=== PATIENT | female | born 1990 | race Caucasian/White ===

== ENCOUNTER 2018-06-06 20:15 | Emergency (ER) | payer SELFPAY ==
--- NOTE | 2018-06-06 21:14 | RAD ---
THREE VIEWS OF THE LEFT WRIST 06/06/18 INDICATION: Left wrist injury. COMPARISON: None. FINDINGS: No acute fracture or subluxation is evident. Soft tissues appear within normal limits. Carpal alignme nt appears within normal limits. IMPRESSION: No acute osseous abnormality. POS: [facility]
== END 2018-06-06 21:20 | disposition home or self-care (01) ==
LOC: ERS 20:15
DX: S60.212A Contusion of left wrist, initial encounter (principal); I49.9 Cardiac arrhythmia, unspecified; X58.XXXA Exposure to other specified factors, initial encounter; Y92.89 Other specified places as the place of occurrence of the external cause
CPT/HCPCS: 29125

== ENCOUNTER 2018-06-10 20:12 | Emergency (ER) | payer SELFPAY ==
[2018-06-10] MEDS ORDERED: HYDROcodone/Acetaminophen 5/325 mg Tablet ONE (21:21)
--- NOTE | 2018-06-10 21:30 | RAD ---
LEFT FOREARM TWO VIEWS: 06/10/18 INDICATION: Injury, pain. FINDINGS: No fracture or dislocation of the radius or ulna. No radiopaque foreign bodies. IMPRESSION: No acute osseous abnormality right forearm. POS: [facility]
[2018-06-10 21:31] LABS: #Eosinphils 0.1 thou/uL (0.0-0.7); #Lymphocytes 2.2 thou/uL (1.20-3.40); #Monocytes 0.5 thou/uL (0.11-0.59); #Neutrophils 5.1 thou/uL (1.40-6.50); %Basophils 0.4 % (0.0-1.0); %Eosinophils 0.6 % (0.0-10.0); %Lymphocytes 28.2 % (21.0-51.0); %Monocytes 6.3 % (0.0-10.0); %Neutrophils 64.5 % (42.0-75.0); Mean Corpuscular HGB CONC 34.1 g/dL (32.0-36.0); Mean Corpuscular Hemoglobin 29.4 pg (27.0-31.0); Mean Corpuscular Volume 86.2 fL (78.0-98.0); Mean Platelet Volume 7.9 fL (7.4-10.4); Platelet Count 198 thou/uL (130-400); RBC Distribution Width 12.7 % (11.5-14.5); Red Blood Cell (RBC) Count 4.43 mill/uL (4.20-5.40); White Blood Cell (WBC) Count 7.8 thou/uL (4.8-10.8)
== END 2018-06-10 22:15 | disposition home or self-care (01) ==
LOC: ERS 20:12
DX: S60.212A Contusion of left wrist, initial encounter (principal); M94.0 Chondrocostal junction syndrome [Tietze]; X58.XXXA Exposure to other specified factors, initial encounter
CPT/HCPCS: 36415; 85025; 85652; 86140

== ENCOUNTER 2019-02-20 21:38 | Emergency (ER) | payer SELFPAY ==
[2019-02-20 22:04] LABS: Pregnancy Test - Urine (BHCG) Negative (Negative); Pregu Control Background? CLEAR/WHITE (CLR/WHITE); Pregu Control Bar Appear? YES (CONTROL BAR); Specific Gravity 1.027 (1.002-1.036)
--- NOTE | 2019-02-20 22:51 | RAD ---
Frontal radiograph chest 3 views left RIBS: 02/20/2019 COMPARISON: None HISTORY: Pain and swelling FINDINGS: No pneumothorax or pleural fluid. No focal consolidation or alveolar edema. Heart and media stinal contours are unremarkable. No displaced left-sided rib fracture is noted. IMPRESSION: No acute findings.
[2019-02-20] MEDS ORDERED: Ketorolac Tromethamine 30 MG/ML VIAL ONE (23:10)
== END 2019-02-20 23:30 | disposition home or self-care (01) ==
LOC: SCSER 21:38
DX: R07.81 Pleurodynia (principal); I49.9 Cardiac arrhythmia, unspecified
CPT/HCPCS: 81025; 96372; J1885

== ENCOUNTER 2019-08-21 12:54 | Outpatient (CLI) | payer OTHER ==
--- NOTE | 2019-08-21 15:37 | MRI ---
MRI CERVICAL SPINE WITHOUT CONTRAST: INDICATIONS: Cervical disk disorder. Radiculopathy. Neck pain. FINDINGS: The cervical vertebrae maintain normal height and alignment. Mild loss of disk space at the C4-C5 and C5-C6 levels. Mild degenerative changes at both these levels. No disk bulge or protrusion seen at C2-C3, C3-C4, or C4-C5. At C5-C6 there is a small focal disk protrusion centrally effacing the anterior subarachnoid space. N o significant cord impingement. No foraminal stenosis. At C6-C7 no significant abnormality. Cord signal appears normal. IMPRESSION: Small disk protrusion centrally at C5-C6. POS: [facility]
== END 2019-08-21 12:55 | disposition home or self-care (01) ==
LOC: BICMRI 12:54
PROVIDERS: ATTEND Family Medicine
DX: M50.122 Cervical disc disorder at C5-C6 level with radiculopathy (principal); S46.011D Strain of muscle(s) and tendon(s) of the rotator cuff of right shoulder, subsequent encounter; S46.012D Strain of muscle(s) and tendon(s) of the rotator cuff of left shoulder, subsequent encounter
CPT/HCPCS: 72141

== ENCOUNTER 2021-07-23 14:29 | Emergency (ER) | payer OTHER, SELFPAY | END 2021-07-23 15:30 | disposition home or self-care (01) | LOC: ERS 14:29 | DX: M77.8 Other enthesopathies, not elsewhere classified (principal) ==

== ENCOUNTER 2022-05-09 08:03 | Emergency (ER) | payer OTHER, SELFPAY ==
[2022-05-09] MEDS ORDERED: Ketorolac Tromethamine 30 MG/ML VIAL ONE (08:33)
[2022-05-09] MEDS ORDERED: Ondansetron PF 4 MG/2 ML Vial ONE (08:47)
[2022-05-09 09:00] LABS: Pregnancy Test - Urine (BHCG) Negative (Negative); Pregu Control Background? CLEAR/WHITE (CLR/WHITE); Pregu Control Bar Appear? YES (CONTROL BAR); Specific Gravity 1.007 (1.002-1.036)
[2022-05-09 09:08] LABS: #Basophils 0.1 thou/uL (0.0-0.2); #Eosinphils 0.2 thou/uL (0.0-0.7); #Lymphocytes 1.7 thou/uL (1.20-3.40); #Monocytes 0.3 thou/uL (0.11-0.59); #Neutrophils 2.7 thou/uL (1.40-6.50); %Basophils 1.2 % (0.0-1.0); %Eosinophils 3.1 % (0.0-10.0); %Lymphocytes 34.4 % (21.0-51.0); %Monocytes 6.7 % (0.0-10.0); %Neutrophils 54.6 % (42.0-75.0); Hemoglobin 13.2 g/dL (12.0-16.0); Mean Corpuscular HGB CONC 31.3 g/dL (32.0-36.0); Mean Corpuscular Volume 92.6 fL (78.0-98.0); Mean Platelet Volume 9.1 fL (7.4-10.4); Platelet Count 171 thou/uL (130-400); Red Blood Cell (RBC) Count 4.55 mill/uL (4.20-5.40)
[2022-05-09 09:13] LABS: ALT (SGPT) 12 U/L (8-55); AST (SGOT) 15 U/L (5-34); Alkaline Phosphatase 53 U/L (40-110); Anion Gap 10 mmol/L (10-20); BUN (Urea Nitrogen) 9 mg/dL (7.0-18.7); Bilirubin, Total 0.4 mg/dL (0.2-1.2); CK (CPK) 114 U/L (29-168); Calc. Creatinine Clearance 0 mL/min (70-130); Calcium 9.1 mg/dL (7.8-10.44); Carbon Dioxide 27 mmol/L (22-29); Chloride 107 mmol/L (98-107); Estimated GFR 93; Globulin 2.9 g/dL (2.4-3.5); Glucose 93 mg/dL (70-105); Protein, Total 6.9 g/dL (6.0-8.3); Sodium 140 mmol/L (136-145)
[2022-05-09] MEDS ORDERED: methylPREDNISolone Sod Succ/PF 125 MG/2 ML VIAL ONE (09:52)
[2022-05-09] MEDS ORDERED: Magnesium 2 GM/50 ML BAG (IN WATER) ONE (09:52)
== END 2022-05-09 10:46 | disposition home or self-care (01) ==
LOC: ERS 08:03
DX: R51.9 Headache, unspecified (principal); R11.2 Nausea with vomiting, unspecified; I49.9 Cardiac arrhythmia, unspecified
CPT/HCPCS: 80053; 81025; 82550; 85025; 93005; 94760; 96361; 96365; 96375; J1885; J2405; J2930; J3475

== ENCOUNTER 2025-07-18 20:33 | Emergency (ER) | payer SELFPAY ==
[2025-07-18 20:49] LABS: #Basophils 0.05 10x3/uL (0.0-0.2); #Eosinophils 0.09 10x3/uL (0.0-0.7); #Monocytes 0.49 10x3/uL (0.11-0.59); #Neutrophils 3.83 10x3/uL (1.40-6.50); %Basophils 0.8 % (0.0-1.0); %Eosinophils 1.4 % (0.0-10.0); %Lymphocytes 32.3 % (21.0-51.0); %Monocytes 7.4 % (0.0-10.0); %Neutrophils 57.9 % (42.0-75.0); Hematocrit 37.1 % (36.0-47.0); Hemoglobin 12.2 g/dL (12.0-16.0); Mean Corpuscular Hemoglobin 28.5 pg (27.0-31.0); Mean Corpuscular Volume 86.7 fL (78.0-98.0); Platelet Count 197 10x3/uL (130-400); Red Blood Cell (RBC) Count 4.28 mill/uL (4.20-5.40); White Blood Cell (WBC) Count 6.60 10x3/uL (4.8-10.8)
[2025-07-18 21:06] LABS: ALT (SGPT) 17 U/L (Less than 34); AST (SGOT) 23 U/L (11-34); Albumin 3.8 g/dL (3.1-4.5); Alkaline Phosphatase 49 U/L (40-110); Anion Gap 13 mmol/L (10-20); BUN (Urea Nitrogen) 12 mg/dL (7.0-18.7); Bilirubin, Total 0.3 mg/dL (0.3-1.2); Calc. Creatinine Clearance 0 mL/min (70-130); Calcium 8.5 mg/dL (7.8-10.44); Carbon Dioxide 21 mmol/L (22-29); Chloride 109 mmol/L (98-107); Globulin 2.6 g/dL (2.4-3.5); Glucose 91 mg/dL (70-105); Potassium 3.5 mmol/L (3.5-5.1); Sodium 139 mmol/L (136-145)
[2025-07-18 23:10] LABS: BHCG - Serum Negative (NEGATIVE); Pregs Control Background? CLEAR/WHITE (CLR/WHITE); Pregs Control Bar Appear? YES (CONTROL BAR)
== END 2025-07-19 01:15 | disposition home or self-care (01) ==
LOC: ERS 20:33
DX: R07.9 Chest pain, unspecified (principal)
CPT/HCPCS: 70450; 71045; 80053; 84484; 84703; 85025; 93005

== ENCOUNTER 2025-08-18 07:14 | Emergency (ER) | payer SELFPAY | END 2025-08-18 09:44 | disposition home or self-care (01) | LOC: ERS 07:14 | DX: M25.561 Pain in right knee (principal); X50.9XXA Other and unspecified overexertion or strenuous movements or postures, initial encounter | CPT/HCPCS: 99283 ==

== ENCOUNTER 2025-09-03 20:23 | Emergency (ER) | payer SELFPAY ==
[2025-09-03] MEDS ORDERED: Boostrix 0.5 ML (Tdap) VIAL (>/=7 yrs of age) ONE (20:49)
== END 2025-09-03 21:05 | disposition home or self-care (01) ==
LOC: ERS 20:23
DX: S01.412A Laceration without foreign body of left cheek and temporomandibular area, initial encounter (principal); W20.8XXA Other cause of strike by thrown, projected or falling object, initial encounter; Z23 Encounter for immunization
CPT/HCPCS: 12011; 90471; 90715